=== PATIENT | male | born 1935 | race Caucasian/White ===

== ENCOUNTER 2023-03-23 11:28 | Outpatient (CLI) | payer MEDICARE, BC, SELFPAY | END 2023-03-23 11:29 | disposition home or self-care (01) | LOC: AMB 03-25 09:25 | PROVIDERS: PCP Family Medicine; Visit Provider Emergency Medicine | DX: R07.89 Other chest pain (principal) | CPT/HCPCS: A0425; A0427 ==

== ENCOUNTER 2023-03-23 12:01 | Inpatient (IN) | payer MEDICARE, BC, SELFPAY ==
[2023-03-23] VITALS (7 sets, daily range): BP systolic 106–143; BP diastolic 55–74; PULSE 77–108; RESP 14–26; TEMP 35.6–37.2; O2SAT 91–96; BMI 33.5; BMI 23.8
--- NOTE | 2023-03-23 12:40 | CRLHL7_ITS ---
For Patients: As a result of the Century Cures Act, medical imaging exams and procedure reports are released immediately into your electronic medical record. You may view this report before your referring provider. If you have questions, please contact your health care provider. Indication: Shortness of breath and presyncope. Technique: Portable AP chest radiograph Comparison: 03/19/2019 Findings: Normal heart and mediastinum. Lungs and pleural spaces clear. No acute or aggressive osseous abnormality. Impression: No acute findings in the chest. Dictated by Brennan Chiu MD @ 03/23/2023 2:00:10 PM (Electronically Signed)
[2023-03-23 13:04] LABS: PCR FLU A POSITIVE PCR FLU A (Negative); PCR FLU B Negative PCR FLU B (Negative); PCR RSV Negative PCR RSV (Negative)
[2023-03-23 13:10] LABS: Lactate* 1.2 mmol/L (0.5-1.9)
[2023-03-23 13:11] LABS: Basophils Absolute Auto 0.01 K/uL (0.00-0.30); Basophils Percent Auto 0.1 % (0.0-3.0); Eosinophils Absolute Auto 0.06 K/uL (0.00-0.50); Eosinophils Percent Auto 0.8 % (0.0-7.0); Hemoglobin* 12.7 gm/dL (13.5-17.5); Immature Granulocytes Abs Auto 0.02 K/uL (0.00-0.30); Immature Granulocytes Pct Auto 0.3 %; Lymphocytes Percent Auto 10.2 % (20-44); Mean Corpuscular HGB Conc 33 gm/dL (32-36); Mean Corpuscular Hemoglobin 31 pg (26-34); Mean Corpuscular Volume 92 fL (80-100); Monocytes Percent Auto 14.5 % (0.0-11.0); Neutrophils Percent Auto 74.1 % (42.0-72.0); Platelet Count* 212 K/uL (140-440); Red Blood Count 4.12 m/uL (4.30-5.90); White Blood Count* 7.74 K/uL (4.50-11.00)
[2023-03-23 13:13] LABS: SARS PCR* POSITIVE SARS-CoV-2 (Negative)
[2023-03-23 13:22] LABS: Slide Review Reflex No
[2023-03-23 13:25] LABS: Chloride* 105 mmol/L (96-114); Potassium* 4.4 mmol/L (3.6-5.1); Sodium* 136 mmol/L (135-149)
[2023-03-23 13:27] LABS: Prothrombin Time 23.1 Seconds
[2023-03-23 13:28] LABS: Anion Gap 7 mEq/L (7-15); Blood Urea Nitrogen* 26 mg/dL (7-30); Carbon Dioxide* 24 mmol/L (20-32); Creatinine* 1.4 mg/dL (0.5-1.5); Est. Creatinine Clearance* 35.29; Estimated Glomerular Filt Rate 48 ml/min; Glucose* 84 mg/dL (60-115)
[2023-03-23 13:40] LABS: NT Pro B Type NatriureticPept* 802 pg/mL
[2023-03-23 13:43] LABS: Troponin I* < 0.01 ng/mL (0.01-0.04)
--- NOTE | 2023-03-23 14:20 | ED.GENADULT ---
HPI - General Adult General Date Seen: 03/23/23 Chief complaint: Weakness Stated complaint: Dizzy Time Seen by Provider: 03/23/23 12:25 History of Present Illness HPI narrative: This is an 87-year-old gentleman brought to the ER today by EMS from his assisted living at [facility] where he lives with his . He was brought to the ER today because he complained of chest pain. However he has actually been sick with a cough for the past few days. Patient is confused and not a reliable historian at this time so history is obtained from his . He has apparently had a cough that is been wet sound in but nonproductive since Saturday, 3 days ago. also notes that he has been weaker than normal. He does not know if he has had a fever not. No known vomiting. No known diarrhea. Today he was complaining of chest pain. He does have a history of previous PE as well as a history of coronary disease with stents. Because of his chest pain ambulance was called. Per EMS, He received aspirin 324 mg. Blood sugar was normal. Vitals were stable. EKG was nonischemic. Now that he is here in the ER the patient has no complaints. He says he is not having any chest pain. When I ask him if he had any, he says he does not recall having had any chest pain. notes no new swelling in his legs. No rash. No known sick exposures. She thinks he probably has pneumonia with his cough. Related Data Home Medications Medication Instructions Recorded Confirmed atorvastatin 80 mg tablet 80 mg PO DAILY 03/23/23 03/23/23 clopidogrel 75 mg tablet 75 mg PO DAILY 03/23/23 03/23/23 famotidine 20 mg tablet 20 mg PO DAILY 03/23/23 03/23/23 metoprolol tartrate 50 mg tablet 50 mg PO BID 03/23/23 03/23/23 tamsulosin 0.4 mg capsule 0.8 mg PO DAILY 03/23/23 03/23/23 warfarin 5 mg tablet 5 mg PO DAILY 03/23/23 03/23/23 Allergies Allergy/AdvReac Type Severity Reaction Status Date / Time atenolol AdvReac Severe Anaphylaxis Verified 03/23/23 12:27 PFSH PFS Social History What is your current living situation?: I presently have a place to live Problems where you live: no known problems Problems where you live details: none In the past 12 months, utilities in danger of being shut off: no In past 12 months, lack of transportation kept you from medical appts, meetings, work, or getting things needed for daily living: no In the past 12 mos, have been you worried that your food would run out before you had money to buy more?: never true In the past 12 mos, the food you bought just didn't last and you didn't have money to buy more?: never true Smoking Status: Former smoker Do you use any of these nicotine containing products: None How often do you have a drink containing alcohol: never How often do you have six or more drinks on one occasion: Never AUDIT-C Alcohol total score: 0 Non-prescribed substance use: denies use How often does anyone, including family, friends and others, physically hurt you: never How often does anyone, including family, friends and others, insult or talk down to you: never How often does anyone, including family, friends and others, threaten you with harm: never How often does anyone, including family, friends and others, scream or curse at you: never Exam Narrative: Exam Narrative: Constitutional: Appears well-developed and well-nourished. Alert. Conversant. Non toxic but weak. Requires assistance of 1 to lean forward for lung exam.. HENT: Head: Atraumatic. Nose: Nose normal. Mouth/Throat: Oral mucosa is clear but somewhat dry. no trismus. Pharynx normal. Tonsils surgically absent. No tonsillar enlargement, erythema, or exudate. Eyes: Conjunctivae normal. EOM normal. Pupils equal, round, and reactive to light. No scleral icterus. Neck: Normal range of motion. Neck supple. No tracheal deviation present. Cardiovascular: Normal rate, regular rhythm. No gallop. No friction rub. No murmur heard. Symmetric radial artery pulses Pulmonary/Chest: Effort normal. No stridor. No respiratory distress. No wheezes. Left> right basilar rales. No rhonchi . No tenderness. Abdominal: Soft. No distension. No mass. No tenderness. No rebound. No guarding. Musculoskeletal: RUE: Normal range of motion. No tenderness. No deformity LUE: Normal range of motion. No tenderness. No deformity RLE: Normal range of motion. No edema. No tenderness. No deformity LLE: Normal range of motion. No edema. No tenderness. No deformity Lymph: No cervical adenopathy. Neurological: Alert and oriented to person, , place, but does not know the day of the week. He did not recall the next Saturday is [place]. Generalized weakness, but no focal deficits. CN II-VII intact. No sensory deficit. GCS eye subscore is 4. GCS verbal subscore is 5. GCS motor subscore is 6. Normal coordination Skin: Skin is warm and dry. No rash noted. No pallor. Normal capillary refill. Psychiatric: Normal mood. Normal affect. He is pleasant but confused. Const: Vital Signs, click to edit/add: Vital Signs - 24 hr 03/23/23 12:19 03/23/23 12:30 03/23/23 15:45 Temperature 98.6 F Pulse Rate [Pulse Oximeter] 92 84 108 H Respiratory Rate 18 26 H Blood Pressure [Le ft Forearm] 143/69 H Blood Pressure [Ri ght Upper Arm] 126/73 112/65 Pulse Oximetry 96 94 Oxygen Delivery Me thod Room Air Room Air Course Course ED Course: Recheck-his is going home. Patient seems more alert now than he was at arrival. Still mild sinus tachycardia with rate of 105. Blood pressure stable. Breathing easily on room air. He will be admitted for generalized weakness and mild confusion. unable to care for him in their current assisted living setting. Vital Signs Vital signs: Initial Vital Signs Temperature 98.6 F 03/23/23 12:19 Temperature Source Temporal Artery Scan 03/23/23 12:19 Pulse Rate 92 03/23/23 12:19 Respiratory Rate 18 03/23/23 12:19 Blood Pressure 126/73 03/23/23 12:19 Blood Pressure Mean 90 03/23/23 12:19 Pulse Oximetry 96 03/23/23 12:19 Oxygen Delivery Method Room Air 03/23/23 12:19 Vital Signs Temperature 98.6 F 03/23/23 12:19 Pulse Rate 92 03/23/23 12:19 Respiratory Rate 18 03/23/23 12:19 Blood Pressure 126/73 03/23/23 12:19 Pulse Oximetry 96 03/23/23 12:19 Oxygen Delivery Method Room Air 03/23/23 12:19 Temperature 96.1 F L 03/23/23 16:18 Pulse Rate 100 03/23/23 16:18 Respiratory Rate 14 03/23/23 16:18 Blood Pressure 131/72 03/23/23 16:18 Pulse Oximetry 94 03/23/23 16:34 Oxygen Delivery Method Room Air 03/23/23 16:34 Medications Administered Medications: Generic Name Dose Route Start Last Admin Trade Name Freq PRN Reason Stop Dose Admin Benzonatate 100 mg 03/23/23 17:06 03/23/23 17:39 Benzonatate 100 Mg Capsule PO 100 mg TID PRN Administration cough Discontinued Medications Generic Name Dose Route Start Last Admin Trade Name Freq PRN Reason Stop Dose Admin Sodium Chloride 1,000 mls @ 1,000 mls/hr 03/23/23 15:15 03/23/23 19:13 0.9 % Sodium Chloride 1000 Ml IV 03/23/23 16:14 Infused .Q1H KAYLEY Infusion Remdesivir 200 mg/ Sodium 290 mls @ 290 mls/hr 03/23/23 16:49 03/23/23 19:12 Chloride IVPB 03/23/23 17:48 Infused ONCE ONE Infusion Warfarin Sodium 5 mg 03/23/23 17:15 03/23/23 17:39 Warfarin 5 Mg Tablet PO 03/23/23 17:16 5 mg ONCE@1700 ONE Administration Medical Decision Making MDM Narrative Medical decision making narrative: This is an 87-year-old gentleman brought to the ER today by EMS from his assisted living. He has had a cough for the past couple of days and apparently had an episode of chest pain today that came and went. The patient is not a reliable historian because he can not recall chest pain but he is clear and believable in saying that he is not having any active chest pain here in the ER. He is coughing. He does feel warm to the touch but does not have an objectively measured fever. In terms of his chest pain EKG was obtained and shows sinus tachycardia with nonspecific changes but no definitive ischemia. Troponin is negative. EKG nonspecific but nonischemic. Chest x-ray does not show any evidence for pneumonia, pneumothorax, pleural effusion, CHF, rib fracture or other definitive cause for chest pain. 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 INR slightly subtherapeutic today. Will hold off on CT PA for now given low likelihood for PE. Even if a CT were positive for PE , it would presumably be related to subtherapeutic INR. At this time he is hemodynamically stable, oxygenating normally and treatment would be to get him back to a therapeutic dose of warfarin. He has symmetric pulses in his arms and legs on exam and no pain through to the back so doubt aortic dissection In terms of his cough differential included bacterial pneumonia as well as viral causes. Chest x-ray is negative for any obvious infiltrate. He is positive by PCR for both influenza a and coronavirus. At this point he is not having any labored respirations or hypoxia. However he is more confused than normal and has generalized weakness. He is not able to sit up or walk here in the ER. He will at require admission for nursing supportive care. His is not able to care for him in his current environment at his assisted living. He will require admission to the hospitalist service for observation status and supportive care. He does have a persistent sinus tachycardia here in the ER which I think reflects dehydration. IV fluids ordered. He would likely benefit from antiviral treatment with remdesivir and Tamiflu Lab Data Labs: Lab Results 03/23/23 03/23/23 03/23/23 Range/Units 12:19 13:00 15:49 WBC 7.74 (4.50-11.00) K/uL RBC 4.12 L (4.30-5.90) m/uL Hgb 12.7 L (13.5-17.5) gm/dL Hct 38.0 (37.0-53.0) % MCV 92 (80-100) fL MCH 31 (26-34) pg MCHC 33 (32-36) gm/dL RDW Coeff of Nish 13.0 (11.5-15.5) % Plt Count 212 (140-440) K/uL Neut % (Auto) 74.1 H (42.0-72.0) % Lymph % (Auto) 10.2 L (20-44) % [place] % (Auto) 14.5 H (0.0-11.0) % Eos % (Auto) 0.8 (0.0-7.0) % Baso % (Auto) 0.1 (0.0-3.0) % Neut # (Auto) 5.70 (1.7-7.0) K/uL Lymph # (Auto) 0.80 L (0.90-2.90) K/uL [place] # (Auto) 1.10 H (0.00-0.90) K/UL Eos # (Auto) 0.06 (0.00-0.50) K/uL Baso # (Auto) 0.01 (0.00-0.30) K/uL Abs Immat Gran (auto) 0.02 (0.00-0.30) K/uL Imm/Tot Granulo (auto) 0.3 % INR 1.90 H (0.91-1.10) Sodium 136 (135-149) mmol/L Potassium 4.4 (3.6-5.1) mmol/L Chloride 105 (96-114) mmol/L Carbon Dioxide 24 (20-32) mmol/L Anion Gap 7 (7-15) mEq/L BUN 26 (7-30) mg/dL Creatinine 1.4 (0.5-1.5) mg/dL Estimated Creat Clear 35.29 Estimated GFR 48 ml/min Glucose 84 (60-115) mg/dL Lactate 1.2 (0.5-1.9) mmol/L Calcium 9.0 (8.4-10.6) mg/dL Troponin I < 0.01 L (0.01-0.04) ng/mL NT-Pro-B Natriuret Pep 802 pg/mL Procalcitonin 0.07 (<0.50) ng/mL SARS-CoV-2 (PCR) POSITIVE SARS-CoV-2 A (Negative) Influenza Type A (PCR) POSITIVE PCR FLU A A (Negative) Influenza Type B (PCR) Negative PCR FLU B (Negative) RSV (PCR) Negative PCR RSV (Negative) Lab Acknowledgement Test Added ECG Data Attestation: I personally reviewed and interpreted this ECG as follows: Interpretation: Sinus tachycardia. Rate 108 VA 152 QRS axis normal axis. No pathologic Q-waves. ST segment/T wave: No ST segment elevation or depression. Nonspecific T-wave flattening. QTc: 482 Discharge Plan Discharge Clinical Impression: COVID-19, Weakness, Acute confusion, Influenza
[2023-03-23] MEDS: 0.9 % SODIUM CHLORIDE 1000 ml 1,000 ML IV (15:33)
--- NOTE | 2023-03-23 15:48 | P.IMHP_ITS ---
Hospitalist- H&P: HPI History of Present Illness Date Seen: 03/23/23 Chief complaint: Dizzy Narrative: Lio Looney is a 87 year old male with notable past medical history of CAD, PE (on warfarin), ?dementia/cognitive deficits presenting from [facility] for evaluation of SOB and confusion. He had reported 2-3 days cough, sob, generalized weakness and confusion. Familly was concerned about possible chest pain. He presented to ED where he tested positive for COVID 19 and Influenza A. CXR no acute findings. Notable labs included normal WBC, normal trop, normal lactate. INR 1.9. He was afebrile and on room air. He was admitted for further evaluation. Patient is not fully oriented. I called his . She states that he is upto date with covid and influenza vaccine. The only time he leaves his room is to go eat dinner with other residents. She confirms code status as DNR/DNI. She states he has memory issues. cxr No acute findings in the chest. Review of Systems Status of ROS: Reports: unobtainable due to medical condition PFSH PFS Social History What is your current living situation?: I presently have a place to live Problems where you live: no known problems Problems where you live details: none In the past 12 months, utilities in danger of being shut off: no In past 12 months, lack of transportation kept you from medical appts, meetings, work, or getting things needed for daily living: no In the past 12 mos, have been you worried that your food would run out before you had money to buy more?: never true In the past 12 mos, the food you bought just didn't last and you didn't have money to buy more?: never true Smoking Status: Former smoker Do you use any of these nicotine containing products: None How often do you have a drink containing alcohol: never How often do you have six or more drinks on one occasion: Never AUDIT-C Alcohol total score: 0 Non-prescribed substance use: denies use How often does anyone, including family, friends and others, physically hurt you : never How often does anyone, including family, friends and others, insult or talk down to you: never How often does anyone, including family, friends and others, threaten you with harm: never How often does anyone, including family, friends and others, scream or curse at you: never Meds Home Medications and Allergies Home Medications Medication Instructions Recorded Confirmed Type atorvastatin 80 mg tablet 80 mg PO DAILY 03/23/23 03/23/23 History clopidogrel 75 mg tablet 75 mg PO DAILY 03/23/23 03/23/23 History famotidine 20 mg tablet 20 mg PO DAILY 03/23/23 03/23/23 History metoprolol tartrate 50 mg tablet 50 mg PO BID 03/23/23 03/23/23 History tamsulosin 0.4 mg capsule 0.8 mg PO DAILY 03/23/23 03/23/23 History warfarin 5 mg tablet 5 mg PO DAILY 03/23/23 03/23/23 History Allergies Allergy/AdvReac Type Severity Reaction Status Date / Time atenolol AdvReac Severe Anaphylaxis Verified 03/23/23 12:27 Exam Narrative: Exam Narrative: Gen: no acute distress HEENT: NCAT EOMI mmm Neck: Supple CV: tachycardic normal s1 s2 Lungs: CTAB Abd: Soft,nt, nd Neuro: Alert, but oriented, CN grossly intact; hard of hearing Psych: appropriate affect MSK: age appropriate muscle mass Skin; Warm, dry no rash on face Const: Vital Signs, click to edit/add: Vital Signs - 24 hr 03/23/23 12:19 03/23/23 12:30 03/23/23 15:45 Temperature 98.6 F Pulse Rate [Pulse Oximeter] 92 84 108 H Respiratory Rate 18 26 H Blood Pressure [Le ft Forearm] 143/69 H Blood Pressure [Ri ght Upper Arm] 126/73 112/65 Pulse Oximetry 96 94 Oxygen Delivery Me thod Room Air Room Air Hospitalist - H&P: Result Labs Labs: Short CBC 03/23/23 Range/Units 13:00 WBC 7.74 (4.50-11.00) K/uL Hgb 12.7 L (13.5-17.5) gm/dL Hct 38.0 (37.0-53.0) % Plt Count 212 (140-440) K/uL BMP 03/23/23 13:00 Sodium 136 Potassium 4.4 Chloride 105 Carbon Dioxide 24 BUN 26 Creatinine 1.4 Glucose 84 Calcium 9.0 Cardiac Enzymes 03/23/23 Range/Units 13:00 Troponin I < 0.01 L (0.01-0.04) ng/mL Assessment and Plan Assessment and plan (1) COVID-19: Status: Acute (2) Influenza: Status: Acute (3) Weakness: Status: Acute Plan Lio Looney is a 87 year old male with notable past medical history of CAD, PE (on warfarin), ?dementia/cognitive deficits presenting from [facility] for evaluation of SOB and confusion. He had reported 2-3 days cough, sob, generalized weakness and confusion. Familly was concerned about possible chest pain. He presented to ED where he tested positive for COVID 19 and Influenza A. CXR no acute findings. Notable labs included normal WBC, normal trop, normal lactate. INR 1.9. He was afebrile and on room air. He was admitted for further evaluation. 1. Acute covid 19, on room air; if hypoxic and requiring oxygen start decadron 2. Influenza A 3. Generalized weakness 4. Hx of CAD 5. Hx of PE on warfarin with subtherapeutic INR 6. Suspected undiagnosed dementia Plan -start remdesivir -stop IVF -resume warfarin -PT therapy evaluation -daily INR -resume plavix -continue BB -supportive cares Code status-verified with DNR/DNI DVT ppx-on warfarin
--- NOTE | 2023-03-23 16:05 | ED.NURSE ---
was incontinent of urine. did try to use urinal of no avail. stood with assistance of 2 and was able to go to m/s via w/c.
[2023-03-23] MEDS: BENZONATATE 100 MG CAPSULE PO (17:39)
[2023-03-23] MEDS: WARFARIN 5 MG TABLET PO (17:39)
[2023-03-23 18:10] LABS: Procalcitonin* 0.07 ng/mL (<0.50)
--- NOTE | 2023-03-23 19:13 | PC.NURSE ---
End of Shift: Patient pleasant and very confused/delirium, but not combative. Oriented to self, and [place]. Patient vitally stable, lungs course and diminished, BS WNL, IV currently running remdesivir otherwise SL. Patient was two assist to the bed upon admission and has not been out of bed. Urinal was used twice in bed and brief changed once. Juice Scaleman fed patient dinner as patient was fixed on lowering the legs of the bed as if he were a recliner. Patient did eat all of dinner. Patient refers to people in his room as Catia(). Patient with a dry cough, no sputum.
[2023-03-23] MEDS: METOPROLOL TARTRATE 50 MG TABLET PO (20:47)
[2023-03-23] MEDS: SODIUM CHLORIDE 0.9 % (FLUSH) 10 ML SYRINGE 5 ML IVF (20:48)
--- NOTE | 2023-03-23 23:04 | PC.NURSE ---
End of shift report [id number]; Patient alert, oriented to date only, patient unable to state name. Denies any pain. Patient does have moist sounding cough, unable to expectorate. Patient unable to follow directions or give any history. Incontinent of bladder and bowel. Patient noted to have scabbed circular rash on bilateral hips, MD updated, no new orders at this time.
[2023-03-24] VITALS (11 sets, daily range): BP systolic 113–162; BP diastolic 60–85; PULSE 73–93; RESP 20–28; TEMP 36.3–37.4; O2SAT 90–93
[2023-03-24] MEDS: guaiFENesin 100 MG/ML CUP PO ×2 (04:51→09:32)
[2023-03-24 06:42] LABS: Hematocrit 38.3 % (37.0-53.0); Hemoglobin* 12.6 gm/dL (13.5-17.5); Immature Granulocytes Abs Auto 0.01 K/uL (0.00-0.30); Immature Granulocytes Pct Auto 0.1 %; Lymphocytes Percent Auto 12.1 % (20-44); Mean Corpuscular HGB Conc 33 gm/dL (32-36); Mean Corpuscular Hemoglobin 30 pg (26-34); Mean Corpuscular Volume 92 fL (80-100); Monocytes Percent Auto 16.2 % (0.0-11.0); Neutrophils Absolute Auto 5.77 K/uL (1.7-7.0); Neutrophils Percent Auto 71.6 % (42.0-72.0); Platelet Count* 170 K/uL (140-440); RDW Coefficient of Variation % 13.3 % (11.5-15.5); Red Blood Count 4.15 m/uL (4.30-5.90); White Blood Count* 8.07 K/uL (4.50-11.00)
--- NOTE | 2023-03-24 06:44 | PC.NURSE ---
PATIENT AFEBRILE OVERNOC. T&R IN BED. INCONTINENT OF URINE OVERNIGHT. PATIENT HAS PRODUCTIVE COUGH BUT SWALLOWING SPUTUM. PATIENT DROWSY AND ORIENTED TO SELF. ANSWERING YES/NO QUESTIONS BUT MINIMALLY CONVERSING. PATIENT GIVEN GUIAFENESIN FOR FREQUEN COUGH.
[2023-03-24 06:51] LABS: Slide Review Reflex No
[2023-03-24 07:04] LABS: INR 1.82 (0.91-1.10); Prothrombin Time 22.4 Seconds
[2023-03-24 07:05] LABS: Albumin* 3.7 g/dL (3.3-5.0); Chloride* 107 mmol/L (96-114); Potassium* 3.9 mmol/L (3.6-5.1); Sodium* 135 mmol/L (135-149)
[2023-03-24 07:07] LABS: Anion Gap 8 mEq/L (7-15); Bilirubin Total* 0.4 mg/dL (0.1-1.5); Carbon Dioxide* 20 mmol/L (20-32); Est. Creatinine Clearance* 54.54; Estimated Glomerular Filt Rate 72 ml/min
[2023-03-24 07:08] LABS: Alanine Aminotransferase* 20 U/L (4-50); Alkaline Phosphatase* 80 U/L (40-150); Aspartate Amino Transferase* 29 U/L (12-35); Blood Urea Nitrogen* 23 mg/dL (7-30); Calcium* 8.4 mg/dL (8.4-10.6); Glucose* 99 mg/dL (60-115); Total Protein* 6.6 g/dL (6.0-8.3)
[2023-03-24] MEDS: ACETAMINOPHEN 325 MG TABLET PO (08:08)
[2023-03-24] MEDS: BENZONATATE 100 MG CAPSULE PO (09:31)
[2023-03-24] MEDS: TAMSULOSIN HCL 0.4 MG CAPSULE 0.8 MG PO (09:31)
[2023-03-24] MEDS: METOPROLOL TARTRATE 50 MG TABLET PO ×2 (09:32→20:11)
[2023-03-24] MEDS: FAMOTIDINE 20 MG TABLET PO (09:32)
[2023-03-24] MEDS: CLOPIDOGREL 75 MG TABLET PO (09:32)
[2023-03-24] MEDS: SODIUM CHLORIDE 0.9 % (FLUSH) 10 ML SYRINGE 5 ML IVF ×2 (09:33→20:11)
[2023-03-24] MEDS: OSELTAMIVIR PHOSPHATE 75 MG CAPSULE PO ×2 (09:47→20:10)
--- NOTE | 2023-03-24 15:54 | P.IMPN_ITS ---
Progress Note: A&P Assessment and plan (1) COVID-19: Problem details: Was started on remdesivir on 03/23/2023 Status: Acute (2) Influenza: Problem details: Started on oseltamivir on 03/24/2023 Status: Acute (3) Weakness: Problem details: Continue to work with patient to determine whether not he can return to his place of living after his condition is more stable Status: Acute Time Spent With Patient Total time spent: 30 minutes Subjective Date Seen: 03/24/23 Interval history: Hospital day 2. Patient has the ability to speak on his own behalf independently is limited due to underlying neuro degenerative process, with dementia. Additionally he is very hard of hearing. As I ask him specific questions he is able to answer yes or no. Denies angina, syncope, dyspnea, cough, nausea, vomiting, abdominal pain. Would like to eat. Exam Narrative: Exam Narrative: Examine him in his patient room. Appears comfortable and in no acute distress. Lungs are clear. Heart tones with regular rhythm. Abdomen with active bowel sounds, soft, nontender. Extremities without edema. Moves all 4 extremities. Const: Vital Signs, click to edit/add: Vital Signs - 24 hr 03/23/23 16:18 03/23/23 16:34 03/23/23 19:00 Temperature 96.1 F L 98.2 F Pulse Rate [Pulse Oximeter] 100 77 Respiratory Rate 14 22 Blood Pressure [Le ft Arm] 131/72 106/55 L Blood Pressure [Ri ght Arm] Pulse Oximetry 94 94 93 Oxygen Delivery Me thod Room Air Room Air Room Air 03/23/23 23:45 03/23/23 23:45 03/23/23 23:45 Temperature Pulse Rate [Pulse Oximeter] 84 Respiratory Rate 20 20 Blood Pressure [Le ft Arm] Blood Pressure [Ri ght Arm] Pulse Oximetry 91 91 Oxygen Delivery Me thod Room Air 03/23/23 23:45 03/24/23 03:00 03/24/23 05:30 Temperature 99 F 99.2 F Pulse Rate [Pulse Oximeter] 84 91 Respiratory Rate 20 20 Blood Pressure [Le ft Arm] 126/74 139/81 Blood Pressure [Ri ght Arm] Pulse Oximetry 91 91 93 Oxygen Delivery Me thod Room Air Room Air Room Air 03/24/23 08:04 03/24/23 08:04 03/24/23 08:04 Temperature 99.3 F Pulse Rate [Pulse Oximeter] 77 77 Respiratory Rate 24 24 Blood Pressure [Le ft Arm] Blood Pressure [Ri ght Arm] 116/67 Pulse Oximetry 92 92 Oxygen Delivery Me thod Room Air 03/24/23 08:04 03/24/23 08:08 03/24/23 09:48 Temperature 99.3 F 97.9 F Pulse Rate [Pulse Oximeter] Respiratory Rate 24 Blood Pressure [Le ft Arm] Blood Pressure [Ri ght Arm] Pulse Oximetry 92 Oxygen Delivery Me thod Room Air 03/24/23 11:54 Temperature 98 F Pulse Rate [Pulse Oximeter] 73 Respiratory Rate 22 Blood Pressure [Le ft Arm] 113/60 Blood Pressure [Ri ght Arm] Pulse Oximetry 91 Oxygen Delivery Me thod Room Air Documenting provider has reviewed patient's vital signs: yes Labs Labs: Laboratory Results - last 24 hr 03/23/23 03/23/23 03/24/23 13:00 15:49 06:10 WBC 8.07 RBC 4.15 L Hgb 12.6 L Hct 38.3 MCV 92 MCH 30 MCHC 33 RDW Coeff of Nish 13.3 Plt Count 170 Neut % (Auto) 71.6 Lymph % (Auto) 12.1 L [place] % (Auto) 16.2 H Eos % (Auto) 0.0 Baso % (Auto) 0.0 Neut # (Auto) 5.77 Lymph # (Auto) 1.00 [place] # (Auto) 1.30 H Eos # (Auto) 0.00 Baso # (Auto) 0.00 Abs Immat Gran (auto) 0.01 Imm/Tot Granulo (auto) 0.1 INR 1.82 H Sodium 135 Potassium 3.9 Chloride 107 Carbon Dioxide 20 Anion Gap 8 BUN 23 Creatinine 1.0 Estimated Creat Clear 54.54 Estimated GFR 72 Glucose 99 Calcium 8.4 Total Bilirubin 0.4 AST 29 ALT 20 Alkaline Phosphatase 80 Total Protein 6.6 Albumin 3.7 Procalcitonin 0.07 0.10 Lab Acknowledgement Test Added
[2023-03-24] MEDS: 0.9 % SODIUM CHLORIDE 250 ml IV (16:55)
--- NOTE | 2023-03-24 18:25 | PC.NURSE ---
End of Shift: Patient pleasant and confused, patient does attempt to get up on own, although not very successful. Patient at times oriented to self. Patient vitally stable, lungs course/diminished, BS WNL, IV intact and SL. Patient 2 assist, walker. Patient denies pain. Patient used urinal and also incontinent. Patient tolerating regular diet, feeding self.
--- NOTE | 2023-03-24 18:30 | PC.NURSE ---
End of Shift: Patient pleasant and confused, at times tries to get up from chair, but no very successful. Patient vitally stable, lungs course/diminished, BS WNL, IV intact and SL. Patient denies pain, 2 assist/walker. Patient used urinal with help and incontinent. Patient tolerating regular diet, feeding self. Patient has been up in chair majority of day. Patient with dry cough.
[2023-03-25 03:00] VITALS: BP 161/86; PULSE 78; RESP 22; TEMP 36.3; O2SAT 93
--- NOTE | 2023-03-25 06:40 | PC.NURSE ---
: ALUTIIQ. Heavy 2 assist from chair to bed, pt was unable to ambulate to the BR d/t weakness. Incont, barrier cream applied as needed. Productive moist cough, however, pt swallows sputum despite reminders to spit. VSS. Pt remains on RA. ?
[2023-03-25 07:00] VITALS: BP 122/88; PULSE 99; RESP 21; TEMP 36.7; O2SAT 93
[2023-03-25] MEDS: CLOPIDOGREL 75 MG TABLET PO (09:43)
[2023-03-25] MEDS: FAMOTIDINE 20 MG TABLET PO (09:43)
[2023-03-25] MEDS: OSELTAMIVIR PHOSPHATE 75 MG CAPSULE PO ×2 (09:43→20:42)
[2023-03-25] MEDS: TAMSULOSIN HCL 0.4 MG CAPSULE 0.8 MG PO (09:44)
[2023-03-25] MEDS: METOPROLOL TARTRATE 50 MG TABLET PO ×2 (09:44→20:42)
[2023-03-25] MEDS: SODIUM CHLORIDE 0.9 % (FLUSH) 10 ML SYRINGE 5 ML IVF ×2 (09:46→20:42)
[2023-03-25 11:00] VITALS: BP 111/73; PULSE 75; RESP 20; TEMP 36.9; O2SAT 94
--- NOTE | 2023-03-25 13:29 | PM.IMPN1 ---
Progress Note: A&P Assessment and plan (1) COVID-19: Problem details: Was started on remdesivir on 03/23/2023 Status: Acute (2) Influenza: Problem details: Started on oseltamivir on 03/24/2023 Status: Acute (3) Weakness: Problem details: Continue to work with patient to determine whether not he can return to his place of living after his condition is more stable Status: Acute Plan 1. Reviewed impression with patient and answered his questions, his main question being when can he go home. 2. A call and spoke with his , Catia, . They live in apartment at [facility]. A number of individuals at [facility] have had similar illnesses. The patient's , Catia, herself is not feeling well. I expressed concern for her well-being, indicating to her that she is at high risk of having a similar set of illnesses as her , mainly COVID-19 and influenza A. I suggested she see her primary care physician. She indicated she will take that under advisement and meanwhile she will continue to care for herself in her apartment. She expressed understanding and gratitude for the help people are giving her and her at this time. She states she is going to try to recover enough so that she can take care of her when he does return back to their home. She understands it is possible that his condition may warrant transitional care services until such time as he can safely return home. She will be available to work with our social sciences professor as more information becomes apparent and if there needs to be additional discussions in this regard. Time Spent With Patient Total time spent: 40 minutes Subjective Date Seen: 03/25/23 Interval history: Hospital day 3. Patient has decreased ability to speak on his own behalf independently, limited in part from underlying neuro degenerative process, dementia. Additionally he is very hard of hearing. Today however he is speaking much more fluidly than yesterday. He can speak in full sentences. He even seems to hear me better than yesterday. He tells me he lives with his . Denies any concerns, pains, nausea, vomiting, headache, aches, diarrhea, constipation. Nurse notes that patient is having a hard time processing being able to utilize the bedside commode. Patient still too weak to walk to and from the bathroom. She is spending a lot of time with him to help him eliminate. Exam Narrative: Exam Narrative: Examine him in his hospital room. Appears comfortable and in no acute distress. More talkative today than yesterday. Still very hard of hearing. Lungs are remarkably clear to auscultation. Heart tones with regular rhythm. Abdomen with active bowel sounds, soft, nontender. No focal motor neurologic deficits aside from chronic decreased hearing. Const: Vital Signs, click to edit/add: Vital Signs - 24 hr 03/24/23 15:15 03/24/23 15:25 03/24/23 15:25 Temperature 98 F Pulse Rate [Pulse Oximeter] 93 Respiratory Rate 20 22 Blood Pressure [Le ft Arm] Blood Pressure [Ri ght Arm] 162/70 H Pulse Oximetry 90 92 Oxygen Delivery Me thod Room Air 03/24/23 15:25 03/24/23 19:45 03/24/23 22:28 Temperature 97.3 F L Pulse Rate [Pulse Oximeter] 89 Respiratory Rate 28 H Blood Pressure [Le ft Arm] 136/85 Blood Pressure [Ri ght Arm] Pulse Oximetry 92 93 93 Oxygen Delivery Me thod Room Air Room Air 03/24/23 22:28 03/24/23 23:30 03/25/23 03:00 Temperature 98.3 F 97.3 F L Pulse Rate [Pulse Oximeter] 83 78 Respiratory Rate 22 22 Blood Pressure [Le ft Arm] 143/78 H 161/86 H Blood Pressure [Ri ght Arm] Pulse Oximetry 93 93 93 Oxygen Delivery Me thod Room Air Room Air Room Air 03/25/23 07:00 03/25/23 07:00 03/25/23 07:00 Temperature 98.0 F Pulse Rate [Pulse Oximeter] 99 Respiratory Rate 21 21 Blood Pressure [Le ft Arm] 122/88 Blood Pressure [Ri ght Arm] Pulse Oximetry 93 93 93 Oxygen Delivery Me thod Room Air Room Air 03/25/23 11:00 Temperature 98.4 F Pulse Rate [Pulse Oximeter] 75 Respiratory Rate 20 Blood Pressure [Le ft Arm] 111/73 Blood Pressure [Ri ght Arm] Pulse Oximetry 94 Oxygen Delivery Me thod Room Air Documenting provider has reviewed patient's vital signs: yes
[2023-03-25 15:00] VITALS: PULSE 80; RESP 20; TEMP 36.2; O2SAT 91
[2023-03-25 19:00] VITALS: BP 107/74; PULSE 94; RESP 20; TEMP 36.3; O2SAT 92
--- NOTE | 2023-03-25 20:18 | PC.NURSE ---
Patient awake today. Assist of 2, walker and gait belt for transfers. Up in recliner most shift. Removed hospital gown multiple times. Requested pants and a shirt. Patient provided with house scrub pants and top. No further episodes of disrobing. Tolerated regular diet. Denied discomfort. IV in right forearm not patent and was removed. New IV placed in left forearm.
[2023-03-25 22:48] VITALS: BP 146/92; PULSE 72; PULSE 94; RESP 24; TEMP 36.1; O2SAT 95
[2023-03-26] VITALS (7 sets, daily range): BP systolic 110–155; BP diastolic 80–98; PULSE 73–91; RESP 16–22; TEMP 35.9–36.7; O2SAT 92–95
--- NOTE | 2023-03-26 05:50 | PC.NURSE ---
: sets off bed and chair alarm. pt has difficulty following direction. heavy 2 assist from chair to bed. incont. audible wheeze, encouraging deep breathing exercises, pt not very receptive. productive cough.
[2023-03-26 07:01] LABS: Hematocrit 38.8 % (37.0-53.0); Mean Corpuscular HGB Conc 34 gm/dL (32-36); Mean Corpuscular Hemoglobin 30 pg (26-34); Mean Corpuscular Volume 90 fL (80-100); Platelet Count* 182 K/uL (140-440); Red Blood Count 4.29 m/uL (4.30-5.90); White Blood Count* 6.31 K/uL (4.50-11.00)
[2023-03-26 07:12] LABS: C Reactive Protein* 4.9 mg/dL (0.5-1.0)
[2023-03-26 07:17] LABS: Slide Review Reflex No
[2023-03-26] MEDS: CLOPIDOGREL 75 MG TABLET PO (08:49)
[2023-03-26] MEDS: OSELTAMIVIR PHOSPHATE 75 MG CAPSULE PO ×2 (08:49→20:46)
[2023-03-26] MEDS: METOPROLOL TARTRATE 50 MG TABLET PO ×2 (08:49→20:46)
[2023-03-26] MEDS: TAMSULOSIN HCL 0.4 MG CAPSULE 0.8 MG PO (08:49)
[2023-03-26] MEDS: FAMOTIDINE 20 MG TABLET PO (08:49)
--- NOTE | 2023-03-26 11:02 | PC.SOCIAL ---
Discharge planning: Spoke with pt's , who lives with pt at [facility] assisted living facility. agrees to short term rehab placement if needed at discharge and requested this be arranged at [facility] as she wants pt to be in [place]. Shared with that [facility] will only accept COVID patients fro admission after 10 days past their positive COVID test. Also shared that sometimes pt's reach a level where they can return to their previous living situations before that ten days is completed as they continue to receive PT/OT at the hospital. is aware and agrees with this plan. Called [facility] and left message requesting short term rehab bed for pt for 04/03/23 which is ten days after his initial COVID positive test on 03/23/23. With 's permission, called [facility] nursing and requested call back to update them on current discharge plans. table worker to follow up as needed.
[2023-03-26] MEDS: bisacodyL 10 MG SUPP.RECT PR (11:40)
--- NOTE | 2023-03-26 11:44 | PC.SOCIAL ---
Discharge planning: Faxed initial packet of information to [facility] for evaluation for admit for short term rehab. Pt is from [facility] nd tested positive for COVID on 03/23/23. community health outreach worker to follow up as needed.
[2023-03-26 12:20] LABS: INR 1.33 (0.91-1.10); Prothrombin Time 17.3 Seconds
--- NOTE | 2023-03-26 14:26 | PC.NURSE ---
End of shift note: Patient is alert and oriented to self only. Hollers out for Catia frequently. This morning he was unable to follow instructions. This afternoon he ambulated to the bathroom and back twice with assist of 1 and walker. Has a dry cough, but saturations remain in the mid 90s. Frequently wanted to use the bathroom today. Post void bladder scan showed 139cc. Patient does not recall when his last BM was. Suppository was given and had a large BM after that and has appeared more comfortable and less agitated this afternoon. Takes pills whole/crushed in applesauce depending on his ability to follow instructions at that time. No PIV in place- okay with this. Bed alarm/Chair alarm in place. Has had some incontinent episodes. Waiting for placement options.
--- NOTE | 2023-03-26 14:51 | PM.IMPN1 ---
Progress Note: A&P Assessment and plan (1) COVID-19: Problem details: Was started on remdesivir on 03/23/2023. Last dose on 03/25/2023. Status: Acute (2) Influenza: Problem details: Started on oseltamivir on 03/24/2023. Last dose on 03/28/2023. Status: Acute (3) Weakness: Problem details: It appears as though patient cannot return home at this time but will need a transitional care [facility] facility for for rehabilitation. Discussed with his , Catia, . She is agreeable to the recommendation for rehabilitation. She desires to work with social worker psychiatric to help facilitate this. Status: Acute Plan 1. Reviewed with patient and . agreeable. Patient indicates he desires to return home with his . Time Spent With Patient Total time spent: 40 minutes Subjective Date Seen: 03/26/23 Interval history: Hospital day 4. Continues to speak and interact much more fluidly than he did when he 1st came in. He can speak in full sentences. He even seems to hear me better than previously. He tells me he lives with his . Denies any concerns, pains, nausea, vomiting, headache, aches, diarrhea, constipation. Nurse notes that patient is having a hard time processing being able to utilize the bedside commode. Patient still too weak to walk to and from the bathroom. She is spending a lot of time with him to help him eliminate. Exam Narrative: Exam Narrative: Examined patient in his hospital room. Appears comfortable and in no acute distress. Talking spontaneously. Decreased hearing with adequate vision. Alert, oriented to self only not place, time, or situation. Lungs are clear to auscultation. Abdomen with active bowel sounds, soft, nontender. Extremities without edema. Still requires heavy assist for transfers. Const: Vital Signs, click to edit/add: Vital Signs - 24 hr 03/25/23 15:00 03/25/23 15:00 03/25/23 19:00 Temperature 97.2 F L 97.4 F L Pulse Rate [Pulse Oximeter] 80 94 Respiratory Rate 20 20 20 Blood Pressure [Le ft Arm] 107/74 Pulse Oximetry 91 91 92 Oxygen Delivery Me thod Room Air Room Air Room Air 03/25/23 22:48 03/25/23 22:48 03/25/23 22:48 Temperature 97 F L Pulse Rate [Pulse Oximeter] 72 94 Respiratory Rate 24 24 24 Blood Pressure [Le ft Arm] 146/92 H Pulse Oximetry 95 95 Oxygen Delivery Me thod Room Air Room Air 03/26/23 02:54 03/26/23 08:31 03/26/23 10:02 Temperature 97.1 F L 97.7 F Pulse Rate [Pulse Oximeter] 77 82 Respiratory Rate 22 16 Blood Pressure [Le ft Arm] 155/86 H 150/89 H Pulse Oximetry 95 93 93 Oxygen Delivery Me thod Room Air Room Air Room Air 03/26/23 11:41 Temperature 98.0 F Pulse Rate [Pulse Oximeter] 90 Respiratory Rate 16 Blood Pressure [Le ft Arm] 117/84 Pulse Oximetry 92 Oxygen Delivery Me thod Room Air Documenting provider has reviewed patient's vital signs: yes Labs Labs: Laboratory Results - last 24 hr 03/26/23 05:50 WBC 6.31 RBC 4.29 L Hgb 13.0 L Hct 38.8 MCV 90 MCH 30 MCHC 34 Plt Count 182 INR 1.33 H C-Reactive Protein 4.9 H
[2023-03-26] MEDS: WARFARIN 5 MG TABLET PO (17:07)
--- NOTE | 2023-03-26 19:48 | PC.NURSE ---
Pt alert to self and current town; Pt unaware he is in hospital. Pt had no complaints of pain. Pt is 1-2 assist with walker and gait belt. Pt can be impulsive but is re-directable.
[2023-03-27 02:52] VITALS: BP 142/86; PULSE 69; RESP 18; TEMP 35.9; O2SAT 95
--- NOTE | 2023-03-27 05:50 | PC.NURSE ---
Pt VSS and afebrile overnight. Alert to self only, disoriented to place, time and situation. Pt anxious and agitated during cares- swearing at staff with brief changes and repositioning. Barrier cream applied to red areas in groin. Pt incontinent of urine overnight. Denies having any pain but is also a poor historian. Pt slept well in between cares and did not set off bed alarm. Ax1-2 pivoting from chair to bed depending on patient?s strength. Pt tends to reach for bedside tables in the room for assistance walking. O2 maintained > 92% on RA overnight. Bed alarm in place.?
[2023-03-27 09:50] VITALS: BP 144/94; PULSE 68; RESP 18; TEMP 36.8; O2SAT 92
[2023-03-27] MEDS: METOPROLOL TARTRATE 50 MG TABLET PO ×2 (09:54→20:50)
[2023-03-27] MEDS: CLOPIDOGREL 75 MG TABLET PO (09:54)
[2023-03-27] MEDS: TAMSULOSIN HCL 0.4 MG CAPSULE 0.8 MG PO (09:54)
[2023-03-27] MEDS: OSELTAMIVIR PHOSPHATE 75 MG CAPSULE PO ×2 (09:54→20:50)
[2023-03-27] MEDS: FAMOTIDINE 20 MG TABLET PO (09:55)
--- NOTE | 2023-03-27 10:41 | PC.NURSE ---
shift note: Reported off to Viktoria BENAVIDEZ
[2023-03-27 11:29] VITALS: BP 102/76; PULSE 83; RESP 20; TEMP 36.5; O2SAT 92
--- NOTE | 2023-03-27 11:34 | P.IMPN_ITS ---
Progress Note: A&P Assessment and plan (1) COVID-19: Problem details: Was started on remdesivir on 03/23/2023. Last dose on 03/25/2023. Status: Acute (2) Influenza: Problem details: Started on oseltamivir on 03/24/2023. Last dose on 03/28/2023. Status: Acute (3) Weakness: Problem details: It appears as though patient cannot return home at this time but will need a transitional care [facility] facility for for rehabilitation. Discussed with his , Catia, . She is agreeable to the recommendation for rehabilitation. She desires to work with social security specialist to help facilitate this. Status: Acute Plan 1. I again called and had my daily talk with his , Catia. I had recommended yesterday that she see her primary care physician in regard to her own condition. Somehow, evidently she for got this and I reminded her of the same today. She again tells me that she she intends to follow this recommendation. 2. Patient is on the waiting list of sorts at [address] [place] [address] for possible admission for transitional care services as early as 04/03/2023. When it comes closer to that date, their ability to admit him will need to be re-evaluated and reconsidered. Meanwhile will continue to support him here in the hospital given that there was no viable save alternative plan at this time. Time Spent With Patient Total time spent: 30 minutes Subjective Date Seen: 03/27/23 Interval history: Hospital day 5. Patient has multiple reasons for having increased risk for delirium. Yesterday late afternoon and evening, he seemed less redirectable and more anxious. Eventually he was able to relax more. Denies any concerns, pains, nausea, vomiting, headache, aches, diarrhea, constipation. Patient still too weak to walk to and from the bathroom. Nurse is spending a lot of time with him to help him eliminate. Exam Narrative: Exam Narrative: Examined patient in his room. Very hard of hearing with adequate vision. Asleep. Arousable. Oriented to self only not place, time, situation. Asks for his again. Lungs are clear to auscultation without wheezing, rhonchi, rales. Heart tones with regular rhythm, normal S1-S2. Abdomen with active bowel sounds, soft, nontender. No focal motor neurologic deficits. Const: Vital Signs, click to edit/add: Vital Signs - 24 hr 03/26/23 11:41 03/26/23 15:40 03/26/23 15:40 Temperature 98.0 F 97.1 F L Pulse Rate [Pulse Oximeter] 90 84 Respiratory Rate 16 16 16 Blood Pressure [Le ft Arm] 117/84 110/80 Blood Pressure [Ri ght Arm] Pulse Oximetry 92 93 93 Oxygen Delivery Me thod Room Air Room Air Room Air 03/26/23 19:00 03/26/23 23:00 03/26/23 23:00 Temperature 96.6 F L Pulse Rate [Pulse Oximeter] 91 91 Respiratory Rate 20 20 20 Blood Pressure [Le ft Arm] Blood Pressure [Ri ght Arm] 126/89 Pulse Oximetry 95 95 Oxygen Delivery Me thod Room Air Room Air 03/26/23 23:00 03/27/23 02:52 03/27/23 09:50 Temperature 96.6 F L 96.7 F L 98.3 F Pulse Rate [Pulse Oximeter] 73 69 68 Respiratory Rate 20 18 18 Blood Pressure [Le ft Arm] Blood Pressure [Ri ght Arm] 140/98 H 142/86 H 144/94 H Pulse Oximetry 95 95 92 Oxygen Delivery Me thod Room Air Room Air Room Air 03/27/23 09:50 03/27/23 09:50 03/27/23 11:29 Temperature 97.7 F Pulse Rate [Pulse Oximeter] 68 83 Respiratory Rate 18 18 20 Blood Pressure [Le ft Arm] Blood Pressure [Ri ght Arm] 102/76 Pulse Oximetry 92 92 Oxygen Delivery Me thod Room Air Room Air Documenting provider has reviewed patient's vital signs: yes Labs Labs: Laboratory Results - last 24 hr 03/26/23 05:50 INR 1.33 H
[2023-03-27 11:40] LABS: INR 1.33 (0.91-1.10); Prothrombin Time 17.4 Seconds
--- NOTE | 2023-03-27 14:41 | PC.NURSE ---
End of Shift: Patient pleasant and cooperative. Has not answered to any questions this shift besides declining pain. Patient 1 assist, walker, gb. Patient up in chair. Patient incontinent of bowel and bladder, diaper changed. Patient ate very little of breakfast and lunch and patient falls asleep during meals.
[2023-03-27 15:00] VITALS: BP 148/94; PULSE 80; RESP 18; TEMP 37.1; O2SAT 93; O2SAT 95
[2023-03-27] MEDS: WARFARIN 5 MG TABLET PO (16:35)
[2023-03-27 19:00] VITALS: BP 148/102; PULSE 89; RESP 18; TEMP 36.8; O2SAT 94
[2023-03-27 23:00] VITALS: BP 108/80; PULSE 85; RESP 20; TEMP 35.5; O2SAT 93
--- NOTE | 2023-03-27 23:03 | PC.NURSE ---
End of Shift: Patient pleasant and cooperative. Alert to self. Afebrile. Up to bathroom and chair with 1-2 assist, walker and gait belt. Denies pain. O2 sats greater than 90% on room air. Tolerating regular diet with no nausea.
[2023-03-28] VITALS (7 sets, daily range): BP systolic 137–152; BP diastolic 84–102; PULSE 75–96; RESP 16–20; TEMP 36.1–36.8; O2SAT 93–96
[2023-03-28] MEDS: ACETAMINOPHEN 325 MG TABLET PO ×2 (03:30→21:29)
--- NOTE | 2023-03-28 05:06 | PC.NURSE ---
End of shift [id number]: Pt is alert to self only. VSS and afebrile overnight. Disoriented to place, time or situation. Ax1 with gait belt & 2WW overnight. Pt was continent of urine overnight, setting off bed alarm to use the restroom. No BM overnight. Pt reported having pain in BLE pointing at his inner thighs; gave PRN Tylenol x1 dose @ 0330. Weak, nonproductive cough present. Expiratory wheezes heard. Pt becomes agitated easily with cares d/t dementia and [place] but will thank staff for assistance in the same sentence. Bilateral hearing aides are in cup on bedside table. Pt chose to sleep with glasses intact.?
--- NOTE | 2023-03-28 08:51 | PM.IMPN1 ---
Progress Note: A&P Assessment and plan (1) COVID-19: Problem details: Was started on remdesivir on 03/23/2023. Last dose on 03/25/2023. Status: Acute (2) Influenza: Problem details: Started on oseltamivir on 03/24/2023. Last dose on 03/28/2023. Status: Acute (3) Weakness: Problem details: It appears as though patient cannot return home at this time but will need a transitional care long term facility for for rehabilitation. Discussed with his , Catia, . She is agreeable to the recommendation for rehabilitation. She desires to work with social work supervisor to help facilitate this. Status: Acute Plan 1. Continue with plans as specified above. Time Spent With Patient Total time spent: 20 minutes Subjective Date Seen: 03/28/23 Interval history: Hospital day 6. Awake when I see him today. He asks what time it is. When I tell him 0830, he asks if he can eat breakfast in bed... He again asks about his , Catia. Denies any concerns, pains, nausea, vomiting, headache, aches, diarrhea, constipation. Exam Narrative: Exam Narrative: I examine him in his hospital room. He appears comfortable. Very hard of hearing. Vision adequate. Loose sputum in his throat is easily cleared. Lungs are clear. Heart tones with regular rhythm. Abdomen is benign. Extremities without edema. Const: Vital Signs, click to edit/add: Vital Signs - 24 hr 03/27/23 09:50 03/27/23 09:50 03/27/23 09:50 Temperature 98.3 F Pulse Rate [Pulse Oximeter] 68 68 Respiratory Rate 18 18 18 Blood Pressure [Le ft Arm] Blood Pressure [Ri ght Arm] 144/94 H Pulse Oximetry 92 92 Oxygen Delivery Me thod Room Air Room Air 03/27/23 11:29 03/27/23 15:00 03/27/23 15:00 Temperature 97.7 F 98.8 F Pulse Rate [Pulse Oximeter] 83 80 Respiratory Rate 20 18 Blood Pressure [Le ft Arm] 148/94 H Blood Pressure [Ri ght Arm] 102/76 Pulse Oximetry 92 93 95 Oxygen Delivery Me thod Room Air Room Air Room Air 03/27/23 15:00 03/27/23 19:00 03/27/23 23:00 Temperature 98.3 F 96 F L Pulse Rate [Pulse Oximeter] 80 89 85 Respiratory Rate 18 18 20 Blood Pressure [Le ft Arm] Blood Pressure [Ri ght Arm] 148/102 H 108/80 Pulse Oximetry 94 93 Oxygen Delivery Me thod Room Air Room Air 03/27/23 23:00 03/27/23 23:00 03/28/23 03:00 Temperature 98.2 F Pulse Rate [Pulse Oximeter] 85 85 Respiratory Rate 20 20 20 Blood Pressure [Le ft Arm] Blood Pressure [Ri ght Arm] 147/102 H Pulse Oximetry 93 94 Oxygen Delivery Me thod Room Air Room Air 03/28/23 08:36 Temperature 97.6 F Pulse Rate [Pulse Oximeter] 96 Respiratory Rate 20 Blood Pressure [Le ft Arm] 146/98 H Blood Pressure [Ri ght Arm] 137/88 Pulse Oximetry 93 Oxygen Delivery Me thod Labs Labs: Laboratory Results - last 24 hr 03/27/23 10:50 INR 1.33 H
[2023-03-28] MEDS: OSELTAMIVIR PHOSPHATE 75 MG CAPSULE PO ×2 (09:24→21:29)
[2023-03-28] MEDS: FAMOTIDINE 20 MG TABLET PO (09:24)
[2023-03-28] MEDS: CLOPIDOGREL 75 MG TABLET PO (09:24)
[2023-03-28] MEDS: TAMSULOSIN HCL 0.4 MG CAPSULE 0.8 MG PO (09:24)
[2023-03-28] MEDS: METOPROLOL TARTRATE 50 MG TABLET PO ×2 (09:25→21:29)
[2023-03-28 14:11] LABS: INR 1.57 (0.91-1.10); Prothrombin Time 19.9 Seconds
[2023-03-28] MEDS: WARFARIN 5 MG TABLET PO (17:22)
--- NOTE | 2023-03-28 19:16 | PC.NURSE ---
End of Shift: Patient pleasant and cooperative throughout shift. Alert to self only. Afebrile. Up to bathroom and chair with 1 assist, walker and gait belt. Patient denies pain. O2 sats greater than 90% on room air. Tolerating regular diet with no nausea.
--- NOTE | 2023-03-29 04:23 | PC.NURSE ---
Addendum entered by Joceline Holloway RN 03/29/23 06:15: Up to the BR throughout the night.. 1 large incontinent episode early this AM. Original Note: End of shift... [id number] The patient is alert to self only. [place]... Ax1 w/ GB and RW to the BR. Does not call appropriately.. he will set off the bed alarm. Usually just needs to go to the bathroom. Lotion was applied to his back early this AM. Reported pain in his back although he could not rate it on a scale of 0-10. Continent of urine throughout the shift. Non productive dry cough. Bilateral inspiratory/expiatory wheezes. Call light within reach and bed alarm remains in place. Joceline BENAVIDEZ BSN
[2023-03-29 07:00] VITALS: PULSE 80; RESP 16; O2SAT 93
[2023-03-29] MEDS: TAMSULOSIN HCL 0.4 MG CAPSULE 0.8 MG PO (08:24)
[2023-03-29] MEDS: METOPROLOL TARTRATE 50 MG TABLET PO ×2 (08:24→21:04)
[2023-03-29] MEDS: CLOPIDOGREL 75 MG TABLET PO (08:25)
[2023-03-29] MEDS: FAMOTIDINE 20 MG TABLET PO (08:25)
--- NOTE | 2023-03-29 10:05 | PM.IMPN1 ---
Progress Note: A&P Assessment and plan (1) COVID-19: Problem details: Was started on remdesivir on 03/23/2023. Last dose on 03/25/2023. Status: Acute (2) Influenza: Problem details: Started on oseltamivir on 03/24/2023. Last dose on 03/28/2023. Status: Acute (3) Weakness: Problem details: It appears as though patient cannot return home at this time but will need a transitional care residential facility for for rehabilitation. Discussed with his , Catia [phone]. She is agreeable to the recommendation for rehabilitation. She desires to work with psychiatric social worker supervisor to help facilitate this. Status: Acute Plan 1. Will Add scheduled DUNEB QID; will hold off on adding prednisone because of increased risk of delirium; 2. Continue with supportive efforts; 3. Called and discussed with his , Catia, , who appreciates daily updates; 4. Patient will either return home with when physically safe and able, or move to SNF for transitional care until safe and able to return home with . Time Spent With Patient Total time spent: 30 minutes Subjective Date Seen: 03/29/23 Interval history: Hospital day 7. Awake when I see him today. More interactive. More physically able, but still needs assist with many ADLs. Denies any concerns, pains, nausea, vomiting, headache, aches, diarrhea, constipation. Denies dyspnea or cough or wheezing. Exam Narrative: Exam Narrative: Examined in his hospital room. Appears comfortable. Hearing improved! Has hearing aids in place. Vision is adequate. Lungs with minimal end-inspiratory wheezing, L > R Heart tones with regular rhythm Abdomen benign Able to transfer from supine and sitting to standing with standby assist Const: Vital Signs, click to edit/add: Vital Signs - 24 hr 03/28/23 11:00 03/28/23 15:00 03/28/23 15:00 Temperature 97.6 F Pulse Rate [Pulse Oximeter] 85 75 Respiratory Rate 20 20 20 Blood Pressure [Le ft Arm] 147/84 H Blood Pressure [Ri ght Arm] Pulse Oximetry 96 96 Oxygen Delivery Me thod Room Air Room Air Fraction of Inspir ed Oxygen 03/28/23 15:00 03/28/23 21:25 03/28/23 21:25 Temperature 97.6 F 97.0 F L Pulse Rate [Pulse Oximeter] 75 80 Respiratory Rate 20 16 16 Blood Pressure [Le ft Arm] 152/94 H Blood Pressure [Ri ght Arm] 149/102 H Pulse Oximetry 96 93 Oxygen Delivery Me thod Room Air Room Air Fraction of Inspir ed Oxygen 03/28/23 23:00 03/29/23 07:00 03/29/23 07:00 Temperature Pulse Rate [Pulse Oximeter] 80 Respiratory Rate 16 16 Blood Pressure [Le ft Arm] Blood Pressure [Ri ght Arm] Pulse Oximetry 93 93 Oxygen Delivery Me thod Room Air Room Air Fraction of Inspir ed Oxygen 16 16 Documenting provider has reviewed patient's vital signs: yes Labs Labs: Laboratory Results - last 24 hr 03/28/23 13:36 INR 1.57 H
[2023-03-29] MEDS: IPRAT-ALBUT 0.5-2.5 MG/3 ML NEB 1 NEB IH ×4 (10:28→21:04)
[2023-03-29 15:00] VITALS: PULSE 80; RESP 14; O2SAT 94
[2023-03-29] MEDS: WARFARIN 5 MG TABLET PO (16:53)
[2023-03-29 19:24] VITALS: BP 126/80; PULSE 84; RESP 18; TEMP 36.7; O2SAT 94
--- NOTE | 2023-03-29 20:03 | PC.NURSE ---
VSS, RA. Denies pain. A&O to self. Follows commands. Frequent moist, productive cough- QID nebs given. LS diminished. Decreased appetite, bites of lunch and dinner. Drinking okay. Up to bathroom frequently- voiding 50-100 cc at a time. Last BM 03/26. No IV. Up SB-assist, walker, gait belt. Bed/chair alarms on. Will continue to monitor, follow POC, and keep pt and family updated. Deann Bowman RN
[2023-03-29 23:00] VITALS: O2SAT 93
[2023-03-30] VITALS (7 sets, daily range): BP systolic 116–172; BP diastolic 71–102; PULSE 76–94; RESP 20; TEMP 36.6–36.7; O2SAT 93–98
--- NOTE | 2023-03-30 06:34 | PC.NURSE ---
Patient pleasant, alert and cooperative. Slept in recliner for most of the night. Ambulated to bathroom with walker and assist of one. Denied any discomfort. Reddened blotchy skin to back. Patient denied any itching. Lotion applied. ?
[2023-03-30 07:03] LABS: Hemoglobin* 12.1 gm/dL (13.5-17.5)
[2023-03-30 07:23] LABS: C Reactive Protein* 1.2 mg/dL (0.5-1.0)
[2023-03-30] MEDS: FAMOTIDINE 20 MG TABLET PO (09:34)
[2023-03-30] MEDS: METOPROLOL TARTRATE 50 MG TABLET PO ×2 (09:34→20:57)
[2023-03-30] MEDS: TAMSULOSIN HCL 0.4 MG CAPSULE 0.8 MG PO (09:35)
[2023-03-30] MEDS: CLOPIDOGREL 75 MG TABLET PO (09:36)
[2023-03-30] MEDS: IPRAT-ALBUT 0.5-2.5 MG/3 ML NEB 1 NEB IH ×4 (09:37→20:57)
--- NOTE | 2023-03-30 14:41 | PC.NURSE ---
Pt's diastolic pressures remain high. He is impulsive and forgets to use his call light, sets off bed and chair alarm frequently. Up to void once an hour for first 3 hours of shift. Pt took his meds with applesauce one at a time. Up with SBA of one with GB and walker. Needs reinstruction on nebulizer use each time it is given. Pt assisted with calling his Catia Ang at home [phone], RN reminded pt that his is not coming in since she is also home sick with Covid. Covid precautions continue. Pt remains confused and needs hourly checks, [place], difficulty with following simple commands.
--- NOTE | 2023-03-30 15:34 | P.IMPN_ITS ---
Progress Note: A&P Assessment and plan (1) Influenza: Problem details: Started on oseltamivir on 03/24/2023. Last dose on 03/28/2023. No complications. Status: Acute (2) COVID-19: Problem details: Was started on remdesivir on 03/23/2023. Last dose on 03/25/2023. No hypoxia Status: Acute (3) Weakness: Problem details: It appears as though patient cannot return home at this time but will need a [facility] care [facility] facility for for rehabilitation. Discussed with his , Catia, . She is agreeable to the recommendation for rehabilitation. She desires to work with social sciences department chair to help facilitate this. Status: Acute (4) Dementia: Problem details: [place] score on March 27 was 5/30. This may not have been his optimal performance with his recent illness but certainly confirms the impression of significant dementia Status: Acute Plan Continue in hospital pending safe discharge plan, probably to penitentiary facility. Continue rehab activities pending that discharge. Monitor for complications of his recent viral infections. Total time spent today is 50 minutes, 30 minutes in coordination of care and discussion with other providers about management of dementia and weakness and acute infections Subjective Date Seen: 03/30/23 Interval history: 87-year-old male with coronary artery disease, pulmonary embolism, dementia admitted to the hospital on March 23 with increased confusion and dyspnea. At the time of admission he was diagnosed with positive COVID and influenza tests. A low other evaluation was unremarkable. He was treated with Tamiflu and Remdesivir. He has generally done well without hypoxia. He was confused and quite weak on admission but his mental status has improved and his mobility has improved as well. Nurses note that he is been up several times to the bathroom on his own without asking for assistance from the nurses. Exam Narrative: Exam Narrative: He is not oriented to his circumstances. He is otherwise pleasant. He reports no concerns today. He is apprised to learn he is in the hospital and has and illness. Respirations are clear to auscultation. No wheezing rales or rhonchi. Cardiovascular: S1, S2, regular rate and rhythm. Abdomen: Bowel sounds active. He has no tenderness. Extremities without edema. He moves all 4 extremities well. Const: Vital Signs, click to edit/add: Vital Signs - 24 hr 03/29/23 19:24 03/29/23 23:00 03/30/23 07:55 Temperature 98.1 F Pulse Rate [Pulse Oximeter] 84 Respiratory Rate 18 20 Blood Pressure [Ri ght Arm] 126/80 Pulse Oximetry 94 93 93 Oxygen Delivery Me thod Room Air Room Air Room Air 03/30/23 12:55 Temperature 98.1 F Pulse Rate [Pulse Oximeter] 77 Respiratory Rate 20 Blood Pressure [Ri ght Arm] 172/102 H Pulse Oximetry 98 Oxygen Delivery Me thod Room Air Labs Labs: Laboratory Results - last 24 hr 03/30/23 06:39 Hgb 12.1 L C-Reactive Protein 1.2 H
[2023-03-30] MEDS: WARFARIN 5 MG TABLET PO (16:43)
--- NOTE | 2023-03-30 17:34 | PC.NURSE ---
Patient remains confused, needs redirection with nebulizer treatment. Assisted to BR per CNAs with GB and walker. Up to recliner for dinner. Report will be provided to oncoming shift RN.
[2023-03-30] MEDS: DOCUSATE SODIUM 100 MG CAPSULE PO (23:01)
--- NOTE | 2023-03-31 06:31 | PC.NURSE ---
[id number]: Patient pleasant. Extremely [place] so communication is a challenge. Impulsive getting up to the BR frequently. SBA w/walker. Administered PRN Docusate d/t no BM since 03/26. No BM during shift.
[2023-03-31 07:45] VITALS: BP 140/91; PULSE 99; RESP 20; TEMP 36.9; O2SAT 92
[2023-03-31] MEDS: TAMSULOSIN HCL 0.4 MG CAPSULE 0.8 MG PO (08:03)
[2023-03-31] MEDS: FAMOTIDINE 20 MG TABLET PO (08:03)
[2023-03-31] MEDS: IPRAT-ALBUT 0.5-2.5 MG/3 ML NEB 1 NEB IH ×4 (08:04→20:47)
[2023-03-31] MEDS: CLOPIDOGREL 75 MG TABLET PO (08:04)
[2023-03-31] MEDS: METOPROLOL TARTRATE 50 MG TABLET PO ×2 (08:04→20:46)
[2023-03-31] MEDS: DOCUSATE SODIUM 100 MG CAPSULE PO (10:45)
[2023-03-31] MEDS: SENNOSIDES 1 TAB TABLET PO ×2 (11:02→20:46)
[2023-03-31 15:00] VITALS: BP 128/87; PULSE 112; RESP 20; TEMP 36.8; O2SAT 92
--- NOTE | 2023-03-31 15:42 | PC.NURSE ---
Pt up in chair entire shift. Denies pain. Walker w/in room to bathroom use. Pt unreceptive to call light & reminders of call light use due to hx of dementia. Able to feed self, pills with applesauce.
[2023-03-31] MEDS: WARFARIN 5 MG TABLET PO (17:04)
[2023-03-31 20:27] VITALS: RESP 16
--- NOTE | 2023-03-31 21:28 | PC.NURSE ---
[id number] Pt up in chair entire shift, declines laying in bed. Pt getting up to BR with walker ind, impulsive, setting off chair alarm. [place] and forgetful. O2 sats adequate on RA, denies pain. no N/V.
[2023-03-31 23:00] VITALS: RESP 18; O2SAT 92
--- NOTE | 2023-04-01 07:19 | PC.NURSE ---
23-07: pt sets off chair alarm frequently to get to the BR. [place] [employer] [place]. Ambulates well with walker. Pt has difficulty following direction. 1x large BM.
[2023-04-01 07:29] LABS: INR 2.47 (0.91-1.10); Prothrombin Time 28.6 Seconds
[2023-04-01 07:36] VITALS: BP 133/87; PULSE 108; RESP 14; TEMP 35.6; O2SAT 96
[2023-04-01] MEDS: SENNOSIDES 1 TAB TABLET PO (08:39)
[2023-04-01] MEDS: TAMSULOSIN HCL 0.4 MG CAPSULE 0.8 MG PO (08:39)
[2023-04-01] MEDS: IPRAT-ALBUT 0.5-2.5 MG/3 ML NEB 1 NEB IH ×3 (08:39→16:41)
[2023-04-01] MEDS: FAMOTIDINE 20 MG TABLET PO (08:39)
[2023-04-01] MEDS: METOPROLOL TARTRATE 50 MG TABLET PO ×2 (08:39→22:11)
[2023-04-01] MEDS: CLOPIDOGREL 75 MG TABLET PO (08:39)
[2023-04-01 10:59] VITALS: BP 127/92; PULSE 97; RESP 18; TEMP 35.9; O2SAT 94
--- NOTE | 2023-04-01 13:56 | P.IMPN_ITS ---
Progress Note: A&P Assessment and plan (1) Influenza: Problem details: Started on oseltamivir on 03/24/2023. Last dose on 03/28/2023. No complications. Status: Acute (2) COVID-19: Problem details: Was started on remdesivir on 03/23/2023. Last dose on 03/25/2023. No hypoxia Status: Acute (3) Weakness: Problem details: It appears as though patient cannot return home at this time but will need a transitional care [facility] facility for for rehabilitation. Discussed with his , Catia, . She is agreeable to the recommendation for rehabilitation. She desires to work with geriatric social work professor to help facilitate this. Status: Acute (4) Dementia: Problem details: [place] score on March 27 was 5/30. This may not have been his optimal performance with his recent illness but certainly confirms the impression of significant dementia Status: Acute Plan Continue cares in the hospital pending safe discharge plan Time Spent With Patient Total time spent: 15 minutes in coordination of care Subjective Date Seen: 04/01/23 Interval history: 87-year-old male with coronary artery disease, pulmonary embolism, dementia admitted to the hospital on March 23 with increased confusion and dyspnea. At the time of admission he was diagnosed with positive COVID and influenza tests. Other evaluation was unremarkable. He was treated with Tamiflu and Remdesivir. He has generally done well without hypoxia. He was confused and quite weak on admission but his mental status has improved and his mobility has improved as well. Nurses note that he is been up several times to the bathroom on his own without asking for assistance from the nurses. He continues to report no symptoms or concerns. He is not oriented to his circumstances. Exam Narrative: Exam Narrative: He is alert pleasant in no distress. Respirations are clear to auscultation. Cardiovascular: S1, S2, regular rate and rhythm. Abdomen is soft without tenderness or mass. Extremities with trace edema. Const: Vital Signs, click to edit/add: Vital Signs - 24 hr 03/31/23 15:00 03/31/23 15:00 03/31/23 15:00 Temperature 98.3 F Pulse Rate [Pulse Oximeter] 112 H 112 H Respiratory Rate 20 Blood Pressure [Le ft Arm] 128/87 Blood Pressure [Ri ght Arm] Pulse Oximetry 92 92 Oxygen Delivery Me thod Room Air Room Air 03/31/23 20:27 03/31/23 23:00 03/31/23 23:00 Temperature Pulse Rate [Pulse Oximeter] Respiratory Rate 16 18 18 Blood Pressure [Le ft Arm] Blood Pressure [Ri ght Arm] Pulse Oximetry 92 Oxygen Delivery Me thod Room Air 04/01/23 07:36 04/01/23 07:36 04/01/23 07:36 Temperature 96.1 F L Pulse Rate [Pulse Oximeter] 108 H 108 H Respiratory Rate 14 14 14 Blood Pressure [Le ft Arm] Blood Pressure [Ri ght Arm] 133/87 Pulse Oximetry 96 96 Oxygen Delivery Me thod Room Air Room Air 04/01/23 10:59 Temperature 96.6 F L Pulse Rate [Pulse Oximeter] 97 Respiratory Rate 18 Blood Pressure [Le ft Arm] 127/92 H Blood Pressure [Ri ght Arm] Pulse Oximetry 94 Oxygen Delivery Me thod Room Air Documenting provider has reviewed patient's vital signs: yes Labs Labs: Laboratory Results - last 24 hr 04/01/23 06:32 INR 2.47 H
--- NOTE | 2023-04-01 14:01 | PC.NURSE ---
End of Shift: Patient LA JO[place]A and cooperative. Patient vitally stable, lungs diminished, BS WNL, NO IV. Patient SBA/walker, does not use call light and will get up from chair alone to use toilet. Patient has had no incontinence this shift. Patient has urinated and had 1 BM on toilet. Patient tolerating regular diet, and resting in recliner all shift.
[2023-04-01 15:00] VITALS: O2SAT 92
[2023-04-01] MEDS: WARFARIN 5 MG TABLET PO (16:39)
[2023-04-01 23:00] VITALS: RESP 20; O2SAT 95
--- NOTE | 2023-04-01 23:04 | PC.NURSE ---
Alert to self only. [place] even with hearing aids in. SBA w/ RW to BR. The patient is impulsive and sets off his alarm when getting up to the BR. Up to BR frequently throughout the shift. Sleeping in the chair currently. Call light within reach. MAXIMO BENAVIDEZ BSN
[2023-04-02 02:50] VITALS: BP 133/94; PULSE 99; RESP 20; TEMP 35.7; O2SAT 95
--- NOTE | 2023-04-02 04:59 | PC.NURSE ---
Patient pleasant and alert. Ambulates to bathroom with walker, gait belt and assist of one. Continent of urine. Slept in recliner. No reports or signs of discomfort. Refused standing scale x2.?
[2023-04-02 06:44] LABS: INR 2.93 (0.91-1.10); Prothrombin Time 32.8 Seconds
[2023-04-02 07:00] VITALS: BP 114/63; PULSE 97; RESP 18; TEMP 35.5; O2SAT 94
[2023-04-02] MEDS: CLOPIDOGREL 75 MG TABLET PO (09:13)
[2023-04-02] MEDS: METOPROLOL TARTRATE 50 MG TABLET PO ×2 (09:13→21:45)
[2023-04-02] MEDS: FAMOTIDINE 20 MG TABLET PO (09:13)
[2023-04-02] MEDS: TAMSULOSIN HCL 0.4 MG CAPSULE 0.8 MG PO (09:14)
[2023-04-02] MEDS: SENNOSIDES 1 TAB TABLET PO (09:14)
--- NOTE | 2023-04-02 10:07 | P.IMPN_ITS ---
Progress Note: A&P Assessment and plan (1) Influenza: Problem details: Started on oseltamivir on 03/24/2023. Last dose on 03/28/2023. No complications. Status: Acute (2) COVID-19: Problem details: Was started on remdesivir on 03/23/2023. Last dose on 03/25/2023. No hypoxia Status: Acute (3) Weakness: Problem details: It appears as though patient cannot return home at this time but will need a transitional care senior living facility for for rehabilitation. Discussed with his , Catia, . She is agreeable to the recommendation for rehabilitation. She desires to work with social media marketing analyst to help facilitate this. Status: Acute (4) Dementia: Problem details: [place] score on March 27 was 5/30. This may not have been his optimal performance with his recent illness but certainly confirms the impression of significant dementia Status: Acute Subjective Date Seen: 04/02/23 Interval history: Daily Progress Note - Hospital Medicine Day #: 11 Positive Covid: 03/23 (Day 10) s/p 3 days IV Remdesivir CC: Covid weakness/encephalopathy, influenza. Frail elderly. OVERNIGHT UPDATES FROM STAFF & MED, LAB, IMAGING UPDATES Afebrile. 114/63. Pulse 90s. Respiratory rate 18. Pulse ox 94% on room air. Hemoglobin last checked on 03/30. 12.1. White count on 03/26 was normal. Last platelet count on 03/26 was normal. INR today is 2.93 Chemistries last checked on 03/24 were normal. Normal renal function. Creatinine 1.0. CRP has continued to down trend. Last checked on 03/30 1.2 Both SARS-CoV-2 and influenza type A positive on 03/23. Single one-view chest x-ray done on admission was unremarkable. Blood cultures are negative after 5 days. EKG was reviewed from admission. Sinus tach. Status post 3 doses of IV Remdesivir. Status post 5 days of p.o. Tamiflu. PT reports This patient is unsafe as it regards his awareness of deficit, gait abnormalities. High risk for fall. Patient pleasant and alert. Ambulates to bathroom with walker, gait belt and assist of one. Continent of urine. Slept in recliner. No reports or signs of dis comfort. Refused standing scale x2. Objective: resting comfortably in his chair. I have him eat peaches/eggs without a swallowing concern. He drinks water. He drifts back to sleep easily. Vitals: see above Lungs: Clear. Cardiac: S1S2. Disposition/Potential discharge - short term SNF placement set for 04/03 Today I spent 50minutes seeing the patient, reviewing Expanse and EPIC notes/diagnostics, discussing the care plan with our care time that includes social work, PT/OT, pharmacy, RT, senior living and documenting my impressions and plan in the medical record. Exam Const: Vital Signs, click to edit/add: Vital Signs - 24 hr 04/01/23 10:59 04/01/23 15:00 04/01/23 23:00 Temperature 96.6 F L Pulse Rate [Pulse Oximeter] 97 Respiratory Rate 18 20 Blood Pressure [Le ft Arm] 127/92 H Pulse Oximetry 94 92 95 Oxygen Delivery Me thod Room Air Room Air Room Air 04/02/23 02:50 04/02/23 07:00 04/02/23 07:00 Temperature 96.3 F L 96 F L Pulse Rate [Pulse Oximeter] 99 97 Respiratory Rate 20 18 18 Blood Pressure [Le ft Arm] 133/94 H 114/63 Pulse Oximetry 95 94 94 Oxygen Delivery Me thod Room Air Room Air Room Air Labs Labs: Laboratory Results - last 24 hr 04/02/23 05:47 INR 2.93 H
--- NOTE | 2023-04-02 10:11 | PC.SOCIAL ---
Discharge planning: Sent updated medical information to [facility] for decision on admit tomorrow for short term rehab. Awaiting call back with decision. Pt is a resident of [facility] assisted living, part of the [facility], and has requested short term placement for rehab at [facility] at discharge. barge worker to follow up as needed.
[2023-04-02 15:00] VITALS: RESP 18; O2SAT 94
--- NOTE | 2023-04-02 15:59 | PC.SOCIAL ---
Addendum entered by KALPESH Wolfe 04/02/23 16:05: Discharge planning: Pt has been accepted to [facility] for tomorrow(04/03). Social work to follow-up as needed. Original Note: Discharge planning: asphalt worker completed Pre-Admission Screening. #[id number]. asphalt worker will also send this PAS number to [facility] via secure email. Social work to follow-up as needed.
[2023-04-02] MEDS: WARFARIN 5 MG TABLET PO (17:29)
--- NOTE | 2023-04-02 19:55 | PC.NURSE ---
Nursing Care Hours: [id number] Pt this shift cooperative with cares and pleasant. Stated the wrong date in morning during assessment but responded appropriately midday with OT, underwriter mortgage loan in the room. Responses significantly delayed. Pt shows flat affect, jaw and R arm tremors, Left shoulder weakness, and shuffled gait. Daughter in the room states tremors have increased over the last few years. Occasionally will stop during ambulation and stand there until prompted to continue forward. C/o back pain when supine otherwise no complaints. Attempted MRI with pain medication but unsuccessful. Abdomen hypoactive and firm, increased flatulence present and pt uncertain of last BM. Continent of bladder. Tolerating minced/moist meals with nectar thick liquids. Insulin given per sliding scale. Tele shows A.fib with RVR, treated per eMAR. Remdesivir started is evening.
--- NOTE | 2023-04-02 20:02 | PC.NURSE ---
Nursing Care Hours: [id number] Pt this shift confused and oriented to self only. Cooperative with cares. VSS. Intermittent moist cough otherwise lungs clear and no SOB with exertion. DuoNeb held. Did not eat well. Fell asleep during breakfast, refused lunch, and refused dinner even when brought to the room. Skin intact.
[2023-04-02 21:00] VITALS: RESP 16
[2023-04-02] MEDS: IPRAT-ALBUT 0.5-2.5 MG/3 ML NEB 1 NEB IH (21:46)
[2023-04-03 03:00] VITALS: O2SAT 93
--- NOTE | 2023-04-03 05:26 | PC.NURSE ---
Patient pleasant and alert. Ambulates to bathroom with walker, gait belt and assist of one. Continent of urine. Slept in bed and recliner.?
[2023-04-03 07:00] VITALS: RESP 18; O2SAT 93
[2023-04-03 07:32] LABS: INR 3.28 (0.91-1.10)
[2023-04-03] MEDS: TAMSULOSIN HCL 0.4 MG CAPSULE 0.8 MG PO (08:04)
[2023-04-03] MEDS: SENNOSIDES 1 TAB TABLET PO (08:04)
[2023-04-03] MEDS: CLOPIDOGREL 75 MG TABLET PO (08:05)
[2023-04-03] MEDS: FAMOTIDINE 20 MG TABLET PO (08:05)
[2023-04-03] MEDS: METOPROLOL TARTRATE 50 MG TABLET PO (08:11)
[2023-04-03 09:17] LABS: SARS PCR* POSITIVE SARS-CoV-2 (Negative)
[2023-04-03 09:57] LABS: SARS Antigen* POSITIVE (Negative)
--- NOTE | 2023-04-03 10:59 | PC.NURSE ---
Discharge Note: The patient discharged to [facility] via non emergent EMS transport @ 1030 this morning. All patients belongings were sent with him. No IV. Nurse to nurse was given by ARIELLE BENAVIDEZ. MAXIMO BENAVIDEZ BSN
--- NOTE | 2023-04-03 11:55 | P.DS_ITS ---
DS: Providers Provider Date Seen: 04/03/23 Date of admission: 03/25/23 08:49 Primary care physician: Bhupinder Trotter MD Admitting Clinician: Deborah Mckinnon MD Consults: 03/23/23 16:08 Consult to Physical Therapy [CONS] Routine Comment: Reason(s) for PT Consult:: Balance Assessment Any Restrictions?:: No Restrictions 03/23/23 16:10 Consult to Occupational Therapy [CONS] Routine Comment: Reason(s) for OT Consult:: Evaluate and Treat Any Restrictions?:: No Restrictions Attending Physician on discharge: Deborah Mckinnon MD Date of Discharge: 04/03/23 DS: Diagnosis Discharge Diagnosis (1) COVID-19: Status: Acute Problem details: Was started on remdesivir on 03/23/2023. Last dose on 03/25/2023. No hypoxia (2) Influenza: Status: Acute Problem details: Started on oseltamivir on 03/24/2023. Last dose on 03/28/2023. No complications. (3) Weakness: Status: Acute Problem details: It appears as though patient cannot return home at this time but will need a transitional care shelter facility for for rehabilitation. Discussed with his , Catia, . She is agreeable to the recommendation for rehabilitation. She desires to work with psychosocial rehabilitation counselor to help facilitate this. (4) Acute confusion: Status: Acute (5) Dementia: Status: Acute Problem details: [place] score on March 27 was 5/30. This may not have been his optimal performance with his recent illness but certainly confirms the impression of significant dementia DS: Summary Hospital Course Hospital Course: FINAL DIAGNOSIS/FOLLOW UP ISSUES: Continued strengthening, rehab as he is status post COVID and influenza infections. Given his age, frail 79 and dementia it is unclear how long he will need shelter. The goal is still to return him home with his . Discharge planning her shelter facility. BRIEF HOSPITAL COURSE: Patient was admitted for 11 days. Synopsis of acute inpatient issues are outlined above. Chronic medical conditions with notable findings outlined above. DISCHARGE MEDICATIONS: See Reconciled list - SIGNIFICANT CHANGES: No new meds Specific instructions to the patient and follow-up are outlined below. REVIEW OF SYSTEMS No new chest pain or dyspnea Pain controlled No voiding difficulties Tolerating diet challenge PHYSICAL EXAM: CONSTITUTIONAL: sleepy. no agitation. VITAL SIGNS: see record. HEENT: Normocephalic, atraumatic. PERRL, EOMI, conjunctivae pink, no scleral icterus. Ears and nose externally normal. Pharynx normal. NECK: No JVD. No carotid bruit, no thyromegaly, no adenopathy. CHEST: Clear to auscultation bilaterally. HEART: S1 and S2 normal. Edema ABDOMEN: Soft, nontender. Normal bowel sounds. MUSCULOSKELETAL: No gross joint deformity or swelling. NEURO: Cranial nerves intact. Grossly intact. No asymmetric findings. SKIN: No rashes, petechiae, concerning changes PSYCHIATRIC: Mood euthymic. DISPOSITION: SNF Time spent on discharge 37 minutes. Status at Discharge Functional status at discharge: uses cane/walker Overall status at discharge: patient is progressing back to baseline Time Spent with Patient Time attestation: Total time spent providing and/or coordinating discharge services: Time spent: Greater than 30 minutes Exam Const: Vital Signs, click to edit/add: Vital Signs - 24 hr 04/02/23 15:00 04/02/23 15:00 04/02/23 21:00 Respiratory Rate 18 16 Pulse Oximetry 94 Oxygen Delivery Me thod Room Air 04/03/23 03:00 04/03/23 07:00 Respiratory Rate 18 Pulse Oximetry 93 93 Oxygen Delivery Me thod Room Air Room Air DS: Data Data Completed and Pending Labs on day of discharge: Labs from last 24 hours 04/03/23 04/03/23 04/03/23 09:23 08:20 06:48 INR 3.28 H SARS-CoV-2 (PCR) Cancelled POSITIVE SARS-CoV-2 A SARS-CoV-2 Ag (Rapid) POSITIVE A Discharge Plan Discharge Disposition: [facility] Date of Admission: 03/25/23 08:49 Attending Provider on Discharge: Deborah Mckinnon Primary Care Provider: Bhupinder Trotter Discharge Medications: Continued atorvastatin 80 mg tablet 80 mg PO DAILY clopidogrel 75 mg tablet 75 mg PO DAILY famotidine 20 mg tablet 40 mg PO DAILY tamsulosin 0.4 mg capsule 0.8 mg PO DAILY warfarin 5 mg tablet 5 mg PO DAILY metoprolol tartrate 50 mg tablet 50 mg PO BID cyanocobalamin (vitamin B-12) 500 mcg tablet 1,000 mcg PO DAILY cholecalciferol (vitamin D3) 25 mcg (1,000 unit) tablet 25 mcg PO BID folic acid 400 mcg tablet 0.4 mg PO DAILY nitroglycerin 0.4 mg tablet, sublingual sublingual docusate sodium 100 mg capsule 100 mg PO BID polyethylene glycol 3350 [ClearLax] 17 gram/dose powder 17 g PO Q OTHER DAY PRN Changed acetaminophen 650 mg tablet extended release 650 mg PO Q8H PRNQty: 90 0RF Discharge Orders: Discharge Order (Routine); Ordered 04/03/23 Ordered By: Deborah Mckinnon Additional Instructions: PT and OT to continue to work with him for weakness and dementia safety He has been treated for both Influenza and Covid-19 and is outside his infectious window now Activity Level: Activity as Tolerated Discharge Diet: Regular Follow Up Appointments: Bhupinder Trotter MD [Primary Care Provider] - (The SNF can set up a f/u based on his length of stay and discharge plan) [facility] Admit to: SNF Discharge Potential: Fair Length of Stay: 30-90 days Can use facility standing orders?: Yes Code Status: DNR/DNI TEDs: Bilateral Knee Rehab Potential: Fair Therapy: Physical Therapy and Occupational Therapy Therapy Orders: Evaluate and Treat and Gait Training Oxygen: No Urinary Catheter: No Orders are good >30 days: Yes
--- NOTE | 2023-04-12 16:48 | P.IMPN_ITS ---
Progress Note: A&P Assessment and plan (1) COVID-19: Problem details: Was started on remdesivir on 03/23/2023. Last dose on 03/25/2023. No hypoxia Status: Resolved (2) Influenza: Problem details: Started on oseltamivir on 03/24/2023. Last dose on 03/28/2023. No complications. Status: Resolved (3) Weakness: Problem details: It appears as though patient cannot return home at this time but will need a transitional care long term facility for for rehabilitation. Discussed with his , Catia, . She is agreeable to the recommendation for rehabilitation. She desires to work with medical social worker to help facilitate this. Status: Acute (4) Acute confusion: Status: Resolved (5) Dementia: Problem details: [place] score on March 27 was 5/30. This may not have been his optimal performance with his recent illness but certainly confirms the impression of significant dementia Status: Acute Plan Continue in hospital pending safe discharge plan. Subjective Date Seen: 03/31/23 Interval history: Patient hospitalized for Covid and influenza. Treated with remdesivir for 3 days and tamiflu for 5 days. Clinically stable. Due to dementia and weakness is unsafe to be home. He has no concerns today. Exam Narrative: Exam Narrative: He is not oriented to his circumstances. Breathing is unlabored and clear to auscultation. CV: S1,S2 with RRR. Abd is soft without tenderness. Const: Documenting provider has reviewed patient's vital signs: yes
== END 2023-04-03 10:30 | DRG 193 ==
LOC: ED 13:43 → MEDSURG 15:59
PROVIDERS: Family Medicine; Hospitalist; Internal Medicine; Physician Assistant; Admitting Provider Family Medicine; Emergency Provider Emergency Medicine; PCP Family Medicine; Visit Provider Family Medicine
DX: J10.1 Influenza due to other identified influenza virus with other respiratory manifestations (principal); U07.1 COVID-19; F05 Delirium due to known physiological condition; F03.90 Unspecified dementia, unspecified severity, without behavioral disturbance, psychotic disturbance, mood disturbance, and anxiety; Z79.01 Long term (current) use of anticoagulants; I25.10 Atherosclerotic heart disease of native coronary artery without angina pectoris; Z86.711 Personal history of pulmonary embolism; R53.1 Weakness
CPT/HCPCS: 36415; 51798; 71045; 80048; 80053; 83605; 83880; 84145; 84484; 85018; 85025; 85027; 85610; 86140; 87040; 87426; 87631; 87635; 94640; 95992; 97110; 97116; 97161; 97165; 97530; 97535; 99284; 99285; A9270; G0378; J7030; J7050

== ENCOUNTER 2023-04-03 10:20 | Outpatient (CLI) | payer MEDICARE, BC, SELFPAY | END 2023-04-03 10:21 | disposition home or self-care (01) | LOC: AMB 04-04 09:59 | PROVIDERS: PCP Family Medicine; Visit Provider Family Medicine | DX: U07.1 COVID-19 (principal); R53.1 Weakness | CPT/HCPCS: A0425; A0428 ==

== ENCOUNTER 2023-04-05 09:50 | Outpatient (REF) | payer SELFPAY ==
[2023-04-05 10:38] LABS: INR 2.96 (0.91-1.10); Prothrombin Time 33.1 Seconds
== END 2023-04-05 09:51 | disposition home or self-care (01) ==
LOC: NPINS 09:50
PROVIDERS: PCP Family Medicine; Visit Provider Nurse Practitioner Adult Health
DX: Z86.718 Personal history of other venous thrombosis and embolism (principal); Z86.711 Personal history of pulmonary embolism; Z79.01 Long term (current) use of anticoagulants
CPT/HCPCS: 85610

== ENCOUNTER 2023-10-21 15:28 | Outpatient (REF) | payer MEDICARE, BC, SELFPAY ==
[2023-10-21 16:09] LABS: Appearance Urine Cloudy (Clear); Bilirubin Urine Negative (Negative); Blood Urine Negative (Negative); Color Urine Yellow (Yellow); Glucose Urine Negative (Negative); Ketones Urine Negative (Negative); Leukocyte Esterase Urine Trace (Negative); Nitrite Urine Negative (Negative); Protein Urine Negative (Negative); Urobilinogen Urine 0.2 (0.2-1.0); pH Urine 5.5 (5.0-8.5)
[2023-10-21 16:48] LABS: Bacteria Urine Few; RBC Urine 0-2 (0-2); Squamous Epithelial Cell Urine Few (None-Few); WBC Urine 0-2 (0-5)
== END 2023-10-21 15:29 | disposition home or self-care (01) ==
LOC: NPINS 15:28
PROVIDERS: PCP Family Medicine; Visit Provider Nurse Practitioner Gerontology
DX: R41.82 Altered mental status, unspecified (principal); R30.0 Dysuria
CPT/HCPCS: 81001; 87086

== ENCOUNTER 2023-11-11 16:57 | Outpatient (REF) | payer MEDICARE, BC, SELFPAY ==
[2023-11-11 17:23] LABS: Appearance Urine Cloudy (Clear); Bilirubin Urine Negative (Negative); Blood Urine Negative (Negative); Color Urine Yellow (Yellow); Glucose Urine Negative (Negative); Ketones Urine Negative (Negative); Leukocyte Esterase Urine Negative (Negative); Nitrite Urine Negative (Negative); Protein Urine Negative (Negative); Urobilinogen Urine 0.2 (0.2-1.0); pH Urine 5.5 (5.0-8.5)
[2023-11-11 17:29] LABS: RBC Urine 0-2 (0-2); Squamous Epithelial Cell Urine Few (None-Few); WBC Urine 0-2 (0-5)
== END 2023-11-11 16:58 | disposition home or self-care (01) ==
LOC: NPINS 16:57
PROVIDERS: PCP Family Medicine; Visit Provider Nurse Practitioner Gerontology
DX: R30.0 Dysuria (principal); R41.82 Altered mental status, unspecified; R82.71 Bacteriuria
CPT/HCPCS: 81001; 87086; 87186